=== PATIENT | male | born 1960 | race Caucasian/White ===

== ENCOUNTER 2017-09-04 15:02 | Emergency (ER) | payer SELFPAY ==
[~2017-09-04] VITALS: Ht 167.6 cm; Wt 73.1 kg
[2017-09-04 15:07] VITALS: BP 182/107
[2017-09-04 15:55] LABS: microscopic required? YES; urine erythrocyte 1+ (NEGATIVE)
[2017-09-04 16:00] LABS: CALCIUM 8.2 mg/dL (8.5-10.1); CARBON DIOXIDE 24.8 mmol/L (21-32); CHLORIDE SERUM 94 mmol/L (98-107); CREATININE SERUM 1.1 mg/dL (0.7-1.3); GFR1 > 60 mL/min; GLUCOSE SERUM 180 mg/dL (74-106); POTASSIUM SERUM 3.2 mmol/L (3.5-5.1); SODIUM SERUM 134 mmol/L (136-145)
[2017-09-04 16:01] LABS: BASOPHIL % 0.7 % (0-2); PLATELET COUNT 139 x10^3mcL (130-400); RED CELL DISTRIBUTION WIDTH 13.9 % (11.5-14.5)
[2017-09-04 16:06] LABS: ALBUMIN 4.3 g/dL (3.4-5.0); ALKALINE PHOSPHATASE 77 U/L (46-116); ALT/SGPT 131 U/L (16-63); AST/SGOT 126 U/L (15-37); BILIRUBIN TOTAL 0.4 mg/dL (0.20-1.00)
[2017-09-04 16:10] LABS: TOTAL PROTEIN, SERUM 8.7 g/dL (6.4-8.2)
[2017-09-04 16:20] LABS: AMPHETAMINE QUAL UR NONE DETECTED (See below)
== END 2017-09-04 17:02 | disposition home or self-care (01) ==
LOC: ED 15:02
PROVIDERS: Specialist
DX: F10.129 Alcohol abuse with intoxication, unspecified (principal); F41.9 Anxiety disorder, unspecified; E87.6 Hypokalemia; I10 Essential (primary) hypertension
CPT/HCPCS: 83880; G0480; J2060; J3411; J3475; J3490; J7030